=== PATIENT | male | born 1940 | race Caucasian/White ===

== ENCOUNTER 2018-05-06 10:26 | Outpatient (CLI) | payer MEDICARE, OTHER ==
[2018-05-06 11:18] LABS: INR 1.7 (0.8-1.2); PT - PROTHROMBIN TIME 18.6 secs (9.9-12.6)
== END 2018-05-06 10:27 | disposition home or self-care (01) ==
LOC: LAB 10:26
DX: K86.9 Disease of pancreas, unspecified (principal)
CPT/HCPCS: 36415; 85610

== ENCOUNTER 2018-05-12 23:44 | Emergency (ER) | payer MEDICARE, OTHER ==
[2018-05-13] MEDS ORDERED: SODIUM CHLORIDE 0.9% 1,000 ML IV ONE (00:08)
[2018-05-13] MEDS ORDERED: ONDANSETRON 4 MG/2 ML VIAL IVP STA (00:08)
[2018-05-13] MEDS ORDERED: HYDROmorphone 1 MG/ML CARPUJECT IVP STA (00:08)
--- NOTE | 2018-05-13 00:10 | ED Physician Documentation ---
PD HPI ABD PAIN - Stated complaint Stated Complaint: EPIGASTRIC PAIN - Chief complaint Chief Complaint: Cardiac - Additional information Additional information: 77-year-old male with a recent diagnosis of pancreatic cancer who underwent a biliary stent [facility] on May 08, 2018. The patient has been doing well since the procedure.This morning the patient presents with epigastric pain which started while at home and is described as a deep ache which radiates into his back. The patient denies nausea or vomiting. The patient denies lower abdominal pain. No fevers or chills. No relieving factors. No other associated symptoms. Review of Systems Constitutional: denies: Fever, Chills Eyes: denies: Discharge Ears: denies: Ear pain Nose: denies: Congestion Throat: denies: Sore throat Cardiac: denies: Chest pain / pressure Respiratory: denies: Cough GI: reports: Abdominal Pain. denies: Vomiting, Diarrhea : denies: Dysuria Skin: denies: Rash Musculoskeletal: denies: Neck pain Neurologic: denies: Generalized weakness PD PAST MEDICAL HISTORY - Past Medical History Past Medical History: Yes Cardiovascular: Hypertension Respiratory: None Neuro: None Endocrine/Autoimmune: Type 2 diabetes GI: None : Other HEENT: None Psych: None Musculoskeletal: None Derm: None Other Past Medical History: PROSTATE CANCER... - Past Surgical History Past Surgical History: Yes General: Other - Present Medications Home Medications: Ambulatory Orders Medication Instructions Recorded Confirmed Aspirin [Aspirin EC] 81 mg PO DAILY 05/13/18 05/13/18 Cholecalciferol (Vitamin D3) 2,000 mg PO DAILY 05/13/18 05/13/18 [Vitamin D3] Dutasteride/Tamsulosin HCl [Natali 1 mg PO DAILY 05/13/18 05/13/18 0.5-0.4 mg Capsule] Fenofibric Acid (Choline) 135 mg PO DAILY 05/13/18 05/13/18 [Trilipix] Lisinopril 40 mg PO DAILY 05/13/18 05/13/18 Omeprazole Magnesium [Prilosec] 20 mg PO BID 05/13/18 05/13/18 Ondansetron HCl [Zofran] 4 mg PO Q6HR PRN #30 tablet 05/13/18 SITagliptin [Januvia] 100 mg PO DAILY 05/13/18 05/13/18 Simvastatin [Zocor] 60 mg PO DAILY 05/13/18 05/13/18 amLODIPine [Norvasc] 5 mg PO BID 05/13/18 05/13/18 hydroCHLOROthiazide 25 mg PO DAILY 05/13/18 05/13/18 [Hydrochlorothiazide] metFORMIN [Glucophage] 1,000 mg PO BID 05/13/18 05/13/18 oxyCODONE [Roxicodone] 5 mg PO Q6H PRN #20 tablet 05/13/18 - Allergies Allergies/Adverse Reactions: Allergies Allergy/AdvReac Type Severity Reaction Status Date / Time Penicillins AdvReac Edema Verified 05/12/18 23:54 Sulfa (Sulfonamide AdvReac Rash Verified 05/12/18 23:55 Antibiotics) - Social History Does the pt smoke?: No Smoking Status: Never smoker Does the pt drink ETOH?: Yes Does the pt have substance abuse?: No - Immunizations Immunizations are current?: Yes - POLST Patient has POLST: No PD ED PE NORMAL - General General: Alert and oriented X 3 - HEENT HEENT: Atraumatic, PERRL, EOMI, Moist mucous membranes, Other (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 No: Non tender (The patient has tenderness to palpation of the epigastrium, no rebound or peritoneal signs) - Derm Derm: Warm and dry, Other (Jaundice) - Extremities Extremities: No deformity, Normal ROM s pain - Neuro Neuro: Alert and oriented X 3, Normal speech Results - Vitals Vitals: Vital Signs - 24 hr 05/12/18 05/13/18 05/13/18 23:52 00:00 00:10 Temperature 36.5 C Heart Rate 80 76 76 Respiratory 17 15 15 Rate Blood Pressure 159/65 H 156/79 H 138/78 H Blood Pressure [Left] Blood Pressure [Right] O2 Saturation 99 99 98 05/13/18 05/13/18 05/13/18 00:18 00:24 00:58 Temperature Heart Rate 69 71 Respiratory 11 L 18 Rate Blood Pressure 129/80 145/77 H Blood Pressure 137/78 H [Left] Blood Pressure 129/80 [Right] O2 Saturation 97 96 05/13/18 05/13/18 05/13/18 02:17 03:26 04:11 Temperature 36.3 C L Heart Rate 69 69 69 Respiratory 13 13 13 Rate Blood Pressure 145/75 H 152/77 H 147/70 H Blood Pressure [Left] Blood Pressure [Right] O2 Saturation 96 96 96 Oxygen O2 Source Room air - EKG (time done) 23:53 Rate: Rate (enter#) Rhythm: NSR Intervals: Normal MA, Wide QRS Ischemia: Non specific changes Other comments: Other comments (Sinus rhythm with nonspecific intraventricular conduction delay, no acute ischemic changes) - Labs Labs: Laboratory Tests 05/12/18 05/12/18 05/12/18 23:50 23:50 23:50 WBC 7.5 RBC 3.55 L Hgb 10.3 L Hct 31.7 L MCV 89.2 MCH 29.1 MCHC 32.6 RDW 19.2 H Plt Count 459 H MPV 9.1 Neut # (Auto) 3.4 Lymph # (Auto) 3.3 [place] # (Auto) 0.4 Eos # (Auto) 0.2 Baso # (Auto) 0.2 H Absolute Nucleated RBC 0.00 Nucleated RBC % 0.1 Manual Slide Review Indicated Platelet Estimate NORMAL (130-450,000) RBC Morph Micro Appear 1+ ANISOCYTOSIS Sodium 136 Potassium 3.2 L Chloride 98 L Carbon Dioxide 27 Anion Gap 11.0 BUN 17 Creatinine 0.8 Estimated GFR (MDRD) 94 Glucose 185 H Calcium 9.2 Total Bilirubin 5.1 H AST 65 H ALT 98 H Alkaline Phosphatase 377 H Troponin I < 0.04 Total Protein 7.2 Albumin 3.0 L Globulin 4.2 Albumin/Globulin Ratio 0.7 L Lipase 44 Urine Color Urine Clarity Urine pH Ur Specific [place] Urine Protein Urine Glucose (UA) Urine Ketones Urine Occult Blood Urine Nitrite Urine Bilirubin Urine Urobilinogen Ur Leukocyte Esterase Ur Microscopic Review Urine Culture Comments 05/13/18 01:25 WBC RBC Hgb Hct MCV MCH MCHC RDW Plt Count MPV Neut # (Auto) Lymph # (Auto) [place] # (Auto) Eos # (Auto) Baso # (Auto) Absolute Nucleated RBC Nucleated RBC % Manual Slide Review Platelet Estimate RBC Morph Micro Appear Sodium Potassium Chloride Carbon Dioxide Anion Gap BUN Creatinine Estimated GFR (MDRD) Glucose Calcium Total Bilirubin AST ALT Alkaline Phosphatase Troponin I Total Protein Albumin Globulin Albumin/Globulin Ratio Lipase Urine Color BROWN Urine Clarity CLEAR Urine pH 6.0 Ur Specific [place] 1.015 Urine Protein TRACE Urine Glucose (UA) 250 H Urine Ketones NEGATIVE Urine Occult Blood NEGATIVE Urine Nitrite NEGATIVE Urine Bilirubin SMALL H Urine Urobilinogen 0.2 (NORMAL) Ur Leukocyte Esterase NEGATIVE Ur Microscopic Review NOT INDICATED Urine Culture Comments NOT INDICATED - Rads (name of study) CT abd/pelvis Radiology: Final report received, See rad report (IMPRESSION: 4 cm mass in the head of the pancreas, with periportal adenopathy. Common bile duct and pancreatic duct stents in place. No evidence of pancreatitis or other evident etiology for patient's pain. ) PD MEDICAL DECISION MAKING - ED course ED course: The patient's case discussed with the on-call pigment supplier from [facility], I discussed with him the patient's recent procedure, today's presentation, today's lab work and CT findings. The lab work today when compared to the most recent lab work is actually improving. The patient's bilirubin In early April was 12 and today's level of 5 is much improved, the liver function tests are also coming down from where they were at. Since, the CT scan shows the stent in place and no other secondary complications and now the patient's pain is under control he does not recommend urgent transfer to their facility. The patient appears stable for discharge and follow-up as an outpatient. The patient is actually scheduled to see his primary pigment supplier today in clinic. On final evaluation of the patient he is resting comfortably and appears to be in no acute distress. The patient appears appropriate for discharge. I discussed the findings and plan with the patient who understands and agrees. I discussed warning signs and recommended returning to the emergency department for any worsening or any concerns Departure - Departure Disposition: 01 Home, Self Care Clinical Impression: Pancreatic mass, Elevated liver enzymes, Jaundice Abdominal pain Qualifiers: Abdominal location: epigastric Qualified Code(s): R10.13 - Epigastric pain Condition: Good Instructions: ED Abdominal Pain Unkn Cause Male Follow-Up: Mark Villagran MD [Primary Care Provider] - Within 1 week Prescriptions: Ondansetron HCl [Zofran] 4 mg PO Q6HR PRN #30 tablet PRN Reason: Nausea / Vomiting oxyCODONE [Roxicodone] 5 mg PO Q6H PRN #20 tablet PRN Reason: Pain Comments: Please follow-up with your pigment supplier as scheduled for ongoing evaluation of your acute issue Please return to the emergency department for worsening symptoms or any concerns
[2018-05-13 00:17] LABS: ALBUMIN/GLOBULIN RATIO 0.7 (1.0-2.2); BILIRUBIN,TOTAL 5.1 mg/dL (0.2-1.0); CALCIUM 9.2 mg/dL (8.5-10.3); CREATININE 0.8 mg/dL (0.6-1.2); TOTAL PROTEIN 7.2 g/dL (6.7-8.2)
[2018-05-13] MEDS ORDERED: IOVERSOL 320 100 ML VIAL IVP ONE ×2 (00:27→01:57)
[2018-05-13 00:28] LABS: BASOPHILS # (AUTO) 0.2 10^3/uL (0.0-0.1); BASOPHILS % (AUTO) 2.1 %; EOSINOPHILS # (AUTO) 0.2 10^3/uL (0.0-0.7); EOSINOPHILS % (AUTO) 2.2 %; HGB - HEMOGLOBIN 10.3 g/dL (14.0-18.0); LYMPHOCYTES # (AUTO) 3.3 10^3/uL (1.5-3.5); LYMPHOCYTES % (AUTO) 44.4 %; MEAN CORPUSCULAR HEMOGLOBIN 29.1 pg (27.0-31.0); MEAN CORPUSCULAR HGB CONC 32.6 g/dL (32.0-36.0); MEAN CORPUSCULAR VOLUME 89.2 fL (80.0-94.0); MEAN PLATELET VOLUME 9.1 fL (7.4-11.4); MONOCYTES # (AUTO) 0.4 10^3/uL (0.0-1.0); MONOCYTES % (AUTO) 5.7 %; NEUTROPHILS # (AUTO) 3.4 10^3/uL (1.5-6.6); NEUTROPHILS % (AUTO) 45.6 %; PLT - PLATELET COUNT 459 10^3/uL (130-450); RED BLOOD COUNT 3.55 10^6/uL (4.70-6.10); RED CELL DISTRIBUTION WIDTH 19.2 % (12.0-15.0); WHITE BLOOD COUNT 7.5 x10^3/uL (4.8-10.8)
[2018-05-13] MEDS ORDERED: IOVERSOL 320 50 ML VIAL ONE (00:28)
[2018-05-13 00:31] LABS: PLATELET ESTIMATE, MANUAL NORMAL (130-450,000) (NORMAL); RBC MORPHOLOGY (MULTIPLE) 1+ ANISOCYTOSIS (NORMAL)
[2018-05-13 01:44] LABS: GLUCOSE, URINE (UA) 250 mg/dL (NEGATIVE); KETONES,URINE (UA) NEGATIVE (NEGATIVE); LEUKOCYTE ESTERASE, URINE NEGATIVE (NEGATIVE); NITRITE,URINE NEGATIVE (NEGATIVE); OCCULT BLOOD,URINE NEGATIVE (NEGATIVE); PROTEIN,URINE TRACE mg/dL (NEGATIVE); UROBILINOGEN,URINE 0.2 (NORMAL) E.U./dL (NORMAL)
[2018-05-13 01:52] LABS: BILIRUBIN,URINE SMALL (NEGATIVE); CLARITY,URINE CLEAR (CLEAR); ICTOTEST,URINE POSITIVE
[2018-05-13] MEDS ORDERED: IOVERSOL 320 50 ML VIAL PO ONE (01:57)
--- NOTE | 2018-05-13 02:33 | CT Report ---
Reason: Epigastric pain, status post ERCP with stent Procedure Date: 05/13/2018 Accession Number: [id number] / [id number] Procedure: CT - Abdomen/Pelvis W CPT Code: FULL RESULT: EXAM: CT ABDOMEN AND PELVIS EXAM DATE: 05/13/2018 02:02 AM. CLINICAL HISTORY: Epigastric pain, status post ERCP with stent. COMPARISONS: None. TECHNIQUE: Routine helical CT imaging was performed through the abdomen and pelvis. IV contrast: 80ML OPTIRAY 320. Enteric contrast: Yes. Reconstructions: Coronal and sagittal. In accordance with CT protocol optimization, one or more of the following dose reduction techniques were utilized for this exam: automated exposure control, adjustment of mA and/or KV based on patient size, or use of iterative reconstructive technique. FINDINGS: Lung Bases: Unremarkable. Liver: Pneumobilia. No focal lesion. Gallbladder/Bile Ducts: Common bile duct stent in place. The gallbladder is not dilated. Periportal adenopathy, with the dominant node anterior to the hepatic artery measuring 3.5 x 2.1 cm. Spleen: Normal. Pancreas: Ill-defined mass in the head of the pancreas, measuring approximately 4 x 4 x 2.5 cm. Pancreatic duct stent in place. No pancreatic ductal dilatation. Adrenal Glands: Normal. Kidneys: Normal. No masses or hydronephrosis. Peritoneal Cavity/Bowel: No bowel dilatation, free thus, or free fluid. Periportal adenopathy. No mesenteric adenopathy. The appendix is not confidently identified, but no pericecal fluid collection or inflammation is seen to suggest acute appendicitis. Pelvic Organs: Normal. The bladder and visualized pelvic organs are within normal limits. Vasculature: No aneurysms or other significant abnormality. Bones: Degenerative changes. Other: None. IMPRESSION: 4 cm mass in the head of the pancreas, with periportal adenopathy. Common bile duct and pancreatic duct stents in place. No evidence of pancreatitis or other evident etiology for patient's pain. RADIA
[2018-05-13] MEDS ORDERED: oxyCODONE 5 MG TABLET PO STA (04:21)
[2018-05-13 04:32] VITALS: BP 149/69
== END 2018-05-13 04:32 | disposition home or self-care (01) ==
LOC: ED 23:44
DX: C25.0 Malignant neoplasm of head of pancreas (principal); R74.8 Abnormal levels of other serum enzymes; R17 Unspecified jaundice; I45.89 Other specified conduction disorders; I10 Essential (primary) hypertension; E11.9 Type 2 diabetes mellitus without complications; Z79.84 Long term (current) use of oral hypoglycemic drugs; Z79.82 Long term (current) use of aspirin
CPT/HCPCS: 36415; 74177; 80053; 81003; 83690; 84484; 85025; 93005; 96361; 96374; 96375; 99284; 99285; A9270; J1170; Q9967; 81001; 87086

== ENCOUNTER 2018-06-10 09:04 | Outpatient (CLI) | payer MEDICARE, OTHER ==
[2018-06-10 09:33] LABS: BASOPHILS # (AUTO) 0.1 10^3/uL (0.0-0.1); BASOPHILS % (AUTO) 0.9 %; EOSINOPHILS # (AUTO) 0.1 10^3/uL (0.0-0.7); EOSINOPHILS % (AUTO) 1.3 %; HGB - HEMOGLOBIN 12.2 g/dL (14.0-18.0); LYMPHOCYTES # (AUTO) 0.9 10^3/uL (1.5-3.5); LYMPHOCYTES % (AUTO) 12.7 %; MEAN CORPUSCULAR HEMOGLOBIN 29.4 pg (27.0-31.0); MEAN CORPUSCULAR HGB CONC 33.4 g/dL (32.0-36.0); MEAN CORPUSCULAR VOLUME 87.9 fL (80.0-94.0); MEAN PLATELET VOLUME 7.6 fL (7.4-11.4); MONOCYTES # (AUTO) 0.4 10^3/uL (0.0-1.0); MONOCYTES % (AUTO) 6.2 %; NEUTROPHILS # (AUTO) 5.5 10^3/uL (1.5-6.6); NEUTROPHILS % (AUTO) 78.9 %; PLT - PLATELET COUNT 255 10^3/uL (130-450); RED BLOOD COUNT 4.16 10^6/uL (4.70-6.10); RED CELL DISTRIBUTION WIDTH 14.5 % (12.0-15.0); WHITE BLOOD COUNT 6.9 x10^3/uL (4.8-10.8)
[2018-06-10 09:39] LABS: INR 1.1 (0.8-1.2); PT - PROTHROMBIN TIME 12.3 secs (9.9-12.6)
[2018-06-10 09:50] LABS: PARTIAL THROMBOPLASTIN TIME 30.7 secs (24.9-33.3)
[2018-06-10 09:58] LABS: ALBUMIN 3.6 g/dL (3.2-5.5); BILIRUBIN,TOTAL 1.4 mg/dL (0.2-1.0); CALCIUM 9.2 mg/dL (8.5-10.3); CREATININE 0.8 mg/dL (0.6-1.2); TOTAL PROTEIN 7.1 g/dL (6.7-8.2)
== END 2018-06-10 09:05 | disposition home or self-care (01) ==
LOC: LAB 09:04
PROVIDERS: ATTEND Internal Medicine Hematology & Oncology
DX: C25.9 Malignant neoplasm of pancreas, unspecified (principal)
CPT/HCPCS: 36415; 80053; 85025; 85610; 85730

== ENCOUNTER 2018-06-16 08:02 | Outpatient (CLI) | payer MEDICARE, OTHER ==
[2018-06-16 08:31] LABS: ALBUMIN 3.6 g/dL (3.2-5.5); BILIRUBIN,TOTAL 0.9 mg/dL (0.2-1.0); CALCIUM 8.8 mg/dL (8.5-10.3); CREATININE 0.7 mg/dL (0.6-1.2); TOTAL PROTEIN 7.1 g/dL (6.7-8.2)
[2018-06-16 09:12] LABS: BASOPHILS # (AUTO) 0.2 10^3/uL (0.0-0.1); BASOPHILS % (AUTO) 1.8 %; EOSINOPHILS # (AUTO) 0.2 10^3/uL (0.0-0.7); EOSINOPHILS % (AUTO) 2.3 %; HGB - HEMOGLOBIN 11.9 g/dL (14.0-18.0); LYMPHOCYTES # (AUTO) 0.8 10^3/uL (1.5-3.5); LYMPHOCYTES % (AUTO) 8.8 %; MEAN CORPUSCULAR HGB CONC 34.1 g/dL (32.0-36.0); MEAN PLATELET VOLUME 8.4 fL (7.4-11.4); MONOCYTES # (AUTO) 0.5 10^3/uL (0.0-1.0); MONOCYTES % (AUTO) 5.5 %; NEUTROPHILS # (AUTO) 7.4 10^3/uL (1.5-6.6); NEUTROPHILS % (AUTO) 81.6 %; PLT - PLATELET COUNT 296 10^3/uL (130-450); RED BLOOD COUNT 3.97 10^6/uL (4.70-6.10); RED CELL DISTRIBUTION WIDTH 14.2 % (12.0-15.0); WHITE BLOOD COUNT 9.1 x10^3/uL (4.8-10.8)
[2018-06-16 09:16] LABS: INR 1.1 (0.8-1.2)
== END 2018-06-16 08:03 | disposition home or self-care (01) ==
LOC: LAB 08:02
PROVIDERS: ATTEND Internal Medicine Hematology & Oncology
DX: C25.9 Malignant neoplasm of pancreas, unspecified (principal)
CPT/HCPCS: 36415; 80053; 85025; 85610

== ENCOUNTER 2018-07-06 08:51 | Emergency (ER) | payer MEDICARE, OTHER ==
--- NOTE | 2018-07-06 11:53 | ED Physician Documentation ---
History of Present Illness - Stated complaint Stated Complaint: BILATERAL FOOT SWELLING - Chief complaint Chief Complaint: Cardiac - History obtained from History obtained from: Patient, Family - History of Present Illness Timing: How many days ago (5) - Additonal information Additional information: 77-year-old male undergoing treatment for pancreatic cancer at [facility] has developed lower extremity swelling over the past 5 days. He denies any calf pain he does have some pain in his feet associated with the swelling. He has been sleeping in a recliner with his feet in a dependent position. He has gone into see his oncologist 5 days ago and at that time got some steroid. Review of Systems Constitutional: denies: Fever Eyes: denies: Decreased vision Ears: denies: Ear pain Nose: denies: Rhinorrhea / runny nose, Congestion Throat: denies: Sore throat Cardiac: denies: Chest pain / pressure, Palpitations Respiratory: denies: Dyspnea, Cough Musculoskeletal: reports: Extremity pain, Extremity swelling Neurologic: denies: Generalized weakness, Focal weakness, Numbness PD PAST MEDICAL HISTORY - Past Medical History Cardiovascular: Hypertension Respiratory: None Neuro: None Endocrine/Autoimmune: Type 2 diabetes GI: None : Other HEENT: None Psych: None Musculoskeletal: None Derm: None - Past Surgical History Past Surgical History: Yes General: Other - Present Medications Home Medications: Ambulatory Orders Medication Instructions Recorded Confirmed Aspirin [Aspirin EC] 81 mg PO DAILY 05/13/18 05/13/18 Cholecalciferol (Vitamin D3) 2,000 mg PO DAILY 05/13/18 05/13/18 [Vitamin D3] Dutasteride/Tamsulosin HCl [Natali 1 mg PO DAILY 05/13/18 05/13/18 0.5-0.4 mg Capsule] Fenofibric Acid (Choline) 135 mg PO DAILY 05/13/18 05/13/18 [Trilipix] Lisinopril 40 mg PO DAILY 05/13/18 05/13/18 Omeprazole Magnesium [Prilosec] 20 mg PO BID 05/13/18 05/13/18 Ondansetron HCl [Zofran] 4 mg PO Q6HR PRN #30 tablet 05/13/18 SITagliptin [Januvia] 100 mg PO DAILY 05/13/18 05/13/18 Simvastatin [Zocor] 60 mg PO DAILY 05/13/18 05/13/18 amLODIPine [Norvasc] 5 mg PO BID 05/13/18 05/13/18 hydroCHLOROthiazide 25 mg PO DAILY 05/13/18 05/13/18 [Hydrochlorothiazide] metFORMIN [Glucophage] 1,000 mg PO BID 05/13/18 05/13/18 oxyCODONE [Roxicodone] 5 mg PO Q6H PRN #20 tablet 05/13/18 - Allergies Allergies/Adverse Reactions: Allergies Allergy/AdvReac Type Severity Reaction Status Date / Time Penicillins AdvReac Edema Verified 05/12/18 23:54 Sulfa (Sulfonamide AdvReac Rash Verified 05/12/18 23:55 Antibiotics) - Social History Does the pt smoke?: No Smoking Status: Never smoker Does the pt drink ETOH?: Yes Does the pt have substance abuse?: No - Immunizations Immunizations are current?: Yes - POLST Patient has POLST: No PD ED PE NORMAL - Vitals Vital signs reviewed: Yes (normal ) - General General: Alert and oriented X 3, No acute distress, Well developed/nourished - HEENT HEENT: Atraumatic, PERRL, EOMI - Respiratory Respiratory: No respiratory distress - Derm Derm: Normal color, Warm and dry, No rash - Extremities Extremities: No deformity, Other (There is bilateral lower ext swelling with pitting edema ) - Neuro Neuro: Alert and oriented X 3, oysterman 2-12 intact, No motor deficit, No sensory deficit, Normal speech Eye Opening: Spontaneous Motor: Obeys Commands Verbal: Oriented GCS Score: 15 - Psych Psych: Normal mood, Normal affect Results - Vitals Vitals: Vital Signs - 24 hr 07/06/18 07/06/18 07/06/18 09:11 13:24 13:44 Temperature 36.7 C 36.2 C L Heart Rate 87 88 74 Respiratory 18 16 18 Rate Blood Pressure 124/77 115/57 L 126/78 O2 Saturation 100 95 100 Oxygen O2 Source Room air - Rads (name of study) duplex veins Radiology: Prelim report reviewed (Impression: No evidence for deep venous thrombosis.), EMP read indepedently, See rad report PD MEDICAL DECISION MAKING - ED course Complexity details: reviewed results, re-evaluated patient, considered differential, d/w patient, d/w family ED course: 77-year-old male undergoing treatment for pancreatic cancer has developed lower extremity swelling. He has this bilaterally and fairly symmetrically it is worse on the right than the left. He does not have calf tenderness he does sleep in his easy chair with his legs dangling. I suspect all of this is dependent edema and he has no signs or symptoms of congestive heart failure otherwise. He does have cancer and it was important to rule out deep venous thrombosis. Duplex exam of the right leg is without evidence of DVT. He is allergic to sulfa and we will not prescribe furosemide. He does have hydrochlorothiazide and I have asked him to double up on this medication and to refrain from sleeping in his easy chair. Departure - Departure Disposition: Home, Self Care Clinical Impression: Dependent edema Condition: Stable Instructions: ED Edema Legs Bilateral Follow-Up: Mark Villagran MD [Primary Care Provider] - Comments: Today it appears you have collected fluid in your legs from "dependent" edema from hanging your legs down while you are asleep. Sleep with your legs elevated and double up on your dose of HCTZ. The expectation is that your swelling improves over the next 2 days and as long as you are not continuing to sleep with your legs down this should not come back. Discharge Date/Time: 07/06/18 13:44
--- NOTE | 2018-07-06 13:27 | Ultrasound Report ---
Reason: RLE swelling Procedure Date: 07/06/2018 Accession Number: [id number] / [id number] Procedure: US - Duplex Ext Veins Right CPT Code: FULL RESULT: EXAM: RIGHT LOWER EXTREMITY VENOUS ULTRASOUND EXAM DATE: 07/06/2018 12:24 PM. CLINICAL HISTORY: RLE swelling. COMPARISON: None. TECHNIQUE: Real-time sonographic vascular imaging was performed by the accounts receivable assistant through the lower extremity utilizing both color-flow and Doppler spectral analysis. Multiple data entry representative static images were saved for review. FINDINGS: Common Femoral Vein (CFV): Normal. CFV-GSV Junction: Normal. Profunda Femoral Vein (PFV): Normal. Femoral Vein (FV) Prox: Normal. Femoral Vein (FV) Mid: Normal. Femoral Vein (FV) Dist: Normal. Popliteal Vein: Normal. Posterior Tibial Veins: Normal. Peroneal Veins: Limited visualization. Contralateral Side CFV: Normal. Other: None. IMPRESSION: No evidence for deep venous thrombosis. RADIA
[2018-07-06 15:41] VITALS: BP 126/78
== END 2018-07-06 13:44 | disposition home or self-care (01) ==
LOC: ED 08:51
DX: R60.0 Localized edema (principal); C25.9 Malignant neoplasm of pancreas, unspecified; Z88.2 Allergy status to sulfonamides; I10 Essential (primary) hypertension; E11.9 Type 2 diabetes mellitus without complications; Z79.84 Long term (current) use of oral hypoglycemic drugs; Z79.82 Long term (current) use of aspirin
CPT/HCPCS: 99283

== ENCOUNTER 2018-07-28 16:46 | Emergency (ER) | payer MEDICARE, OTHER ==
[2018-07-28] MEDS ORDERED: SODIUM CHLORIDE 0.9% 1,000 ML IV ONE (17:22)
[2018-07-28] MEDS ORDERED: LACTATED RINGERS 1,000 ML IV STA (17:22)
[2018-07-28] MEDS ORDERED: DIPHENOX/ATROPINE 2.5/0.025 MG TABLET PO STA (17:22)
[2018-07-28] MEDS ORDERED: LIDOCAINE/PRILOCAINE 2.5% CREAM 5 GM TUBE TOP STA (17:23)
--- NOTE | 2018-07-28 17:24 | ED Physician Documentation ---
History of Present Illness - Stated complaint Stated Complaint: DIARRHEA/WEAKNESS - Chief complaint Chief Complaint: General - History obtained from History obtained from: Patient, Family - History of Present Illness Timing: Other (77-year-old gentleman with stage IIb pancreatic cancer undergoing chemotherapy, last infusion about a week and a half ago. He had 4 days of watery diarrhea associated with nausea but no abdominal pain. His oncologist thinks this is due to the chemotherapy. He denies recent travel, fevers, or sick contacts. He is starting to feel weak and dizzy with the diarrhea like he is dehydrated.) Review of Systems Ten Systems: 10 systems reviewed and negative Constitutional: reports: Fatigue. denies: Fever, Chills Throat: denies: Dental pain / toothache, Sore throat Cardiac: denies: Chest pain / pressure, Palpitations Respiratory: denies: Dyspnea PD PAST MEDICAL HISTORY - Past Medical History Cardiovascular: Hypertension Respiratory: None Neuro: None Endocrine/Autoimmune: Type 2 diabetes GI: None : Other HEENT: None Psych: None Musculoskeletal: None Derm: None - Past Surgical History Past Surgical History: Yes General: Other - Present Medications Home Medications: Ambulatory Orders Medication Instructions Recorded Confirmed Aspirin [Aspirin EC] 81 mg PO DAILY 05/13/18 05/13/18 Cholecalciferol (Vitamin D3) 2,000 mg PO DAILY 05/13/18 05/13/18 [Vitamin D3] Dutasteride/Tamsulosin HCl [Natali 1 mg PO DAILY 05/13/18 05/13/18 0.5-0.4 mg Capsule] Fenofibric Acid (Choline) 135 mg PO DAILY 05/13/18 05/13/18 [Trilipix] Lisinopril 40 mg PO DAILY 05/13/18 05/13/18 Omeprazole Magnesium [Prilosec] 20 mg PO BID 05/13/18 05/13/18 Ondansetron HCl [Zofran] 4 mg PO Q6HR PRN #30 tablet 05/13/18 SITagliptin [Januvia] 100 mg PO DAILY 05/13/18 05/13/18 Simvastatin [Zocor] 60 mg PO DAILY 05/13/18 05/13/18 amLODIPine [Norvasc] 5 mg PO BID 05/13/18 05/13/18 hydroCHLOROthiazide 25 mg PO DAILY 05/13/18 05/13/18 [Hydrochlorothiazide] metFORMIN [Glucophage] 1,000 mg PO BID 05/13/18 05/13/18 oxyCODONE [Roxicodone] 5 mg PO Q6H PRN #20 tablet 05/13/18 oxyCODONE [Roxicodone] 5 mg PO Q4-6H PRN #20 tablet 07/28/18 - Allergies Allergies/Adverse Reactions: Allergies Allergy/AdvReac Type Severity Reaction Status Date / Time Penicillins AdvReac Edema Verified 07/28/18 17:05 Sulfa (Sulfonamide AdvReac Rash Verified 07/28/18 17:05 Antibiotics) - Social History Does the pt smoke?: No Smoking Status: Never smoker Does the pt drink ETOH?: Yes Does the pt have substance abuse?: No - Family History Family history: reports: Non contributory - Immunizations Immunizations are current?: Yes - POLST Patient has POLST: No PD ED PE NORMAL - Vitals Vital signs reviewed: Yes (Borderline hypotension and tachycardia) - General General: Alert and oriented X 3, No acute distress - HEENT HEENT: PERRL, EOMI - Neck Neck: Supple, no meningeal sign, No bony TTP - Cardiac Cardiac: RRR, No murmur - Respiratory Respiratory: No respiratory distress, Clear bilaterally - Abdomen Abdomen: Other (Hyperactive bowel tones, no tenderness.) - Back Back: No CVA TTP, No spinal TTP - Derm Derm: Normal color, Warm and dry - Extremities Extremities: No edema, No calf tenderness / cord - Neuro Neuro: Alert and oriented X 3, Normal speech Results - Vitals Vitals: Vital Signs - 24 hr 07/28/18 07/28/18 07/28/18 16:59 18:37 19:16 Temperature 37.2 C 36.9 C 36.7 C Heart Rate 104 H 112 H 86 Respiratory 20 16 16 Rate Blood Pressure 97/52 L 141/64 H 125/56 L O2 Saturation 93 94 93 Oxygen O2 Source Room air - Labs Labs: Laboratory Tests 07/28/18 07/28/18 07/28/18 17:15 17:15 17:37 WBC 3.2 L RBC 4.04 L Hgb 11.7 L Hct 34.3 L MCV 84.9 MCH 28.9 MCHC 34.0 RDW 14.7 Plt Count 282 MPV 7.3 L Neut # (Auto) 1.4 L Lymph # (Auto) 0.9 L [place] # (Auto) 0.9 Eos # (Auto) 0.1 Baso # (Auto) 0.0 Absolute Nucleated RBC 0.00 Nucleated RBC % 0.1 Sodium 128 L Potassium 2.9 L Chloride 93 L Carbon Dioxide 22 Anion Gap 13.0 BUN 12 Creatinine 1.2 Estimated GFR (MDRD) 59 L Glucose 156 H Lactic Acid 0.8 Calcium 8.1 L Total Bilirubin 0.8 AST 26 ALT 37 Alkaline Phosphatase 211 H Total Protein 5.8 L Albumin 2.7 L Globulin 3.1 Albumin/Globulin Ratio 0.9 L Lipase 18 L Urine Color Urine Clarity Urine pH Ur Specific [place] Urine Protein Urine Glucose (UA) Urine Ketones Urine Occult Blood Urine Nitrite Urine Bilirubin Urine Urobilinogen Ur Leukocyte Esterase Urine RBC Urine WBC Ur Squamous Epith Cells Urine Bacteria Urine Casts Ur Microscopic Review Urine Culture Comments 07/28/18 18:29 WBC RBC Hgb Hct MCV MCH MCHC RDW Plt Count MPV Neut # (Auto) Lymph # (Auto) [place] # (Auto) Eos # (Auto) Baso # (Auto) Absolute Nucleated RBC Nucleated RBC % Sodium Potassium Chloride Carbon Dioxide Anion Gap BUN Creatinine Estimated GFR (MDRD) Glucose Lactic Acid Calcium Total Bilirubin AST ALT Alkaline Phosphatase Total Protein Albumin Globulin Albumin/Globulin Ratio Lipase Urine Color YELLOW Urine Clarity CLEAR Urine pH 6.0 Ur Specific [place] 1.020 Urine Protein 30 H Urine Glucose (UA) NEGATIVE Urine Ketones TRACE Urine Occult Blood TRACE-LYSE Urine Nitrite NEGATIVE Urine Bilirubin NEGATIVE Urine Urobilinogen 0.2 (NORMAL) Ur Leukocyte Esterase NEGATIVE Urine RBC 0-5 Urine WBC 0-3 Ur Squamous Epith Cells NONE SEEN Urine Bacteria None Seen Urine Casts 3-5 Hyaline Casts Ur Microscopic Review INDICATED Urine Culture Comments NOT INDICATED PD MEDICAL DECISION MAKING - ED course ED course: 77-year-old gentleman undergoing chemotherapy presents with diarrhea, presumed related to his chemotherapy primarily. He feels dehydrated. His port was accessed and he was administered 2 L of IV fluids and some oral potassium for his low potassium he felt much better and tolerated p.o. here. He requested a refill of his oxycodone that he is using occasionally for pain and given the circumstances it is not unreasonable. Departure - Departure Disposition: 01 Home, Self Care Clinical Impression: Pancreatic mass, Dehydration Diarrhea Qualifiers: Diarrhea type: unspecified type Qualified Code(s): R19.7 - Diarrhea, unspecified Condition: Good Record reviewed to determine appropriate education?: Yes Instructions: ED Dehydration Prescriptions: oxyCODONE [Roxicodone] 5 mg PO Q4-6H PRN #20 tablet PRN Reason: Pain Comments: Call your doctor to arrange a follow-up appointment, make the next available appointment. In the interim, return anytime if worse or if new symptoms develop.
[2018-07-28 17:27] LABS: BASOPHILS % (AUTO) 0.9 %; EOSINOPHILS # (AUTO) 0.1 10^3/uL (0.0-0.7); EOSINOPHILS % (AUTO) 1.6 %; HGB - HEMOGLOBIN 11.7 g/dL (14.0-18.0); LYMPHOCYTES # (AUTO) 0.9 10^3/uL (1.5-3.5); LYMPHOCYTES % (AUTO) 27.2 %; MEAN CORPUSCULAR HEMOGLOBIN 28.9 pg (27.0-31.0); MEAN CORPUSCULAR VOLUME 84.9 fL (80.0-94.0); MEAN PLATELET VOLUME 7.3 fL (7.4-11.4); MONOCYTES # (AUTO) 0.9 10^3/uL (0.0-1.0); MONOCYTES % (AUTO) 26.8 %; NEUTROPHILS # (AUTO) 1.4 10^3/uL (1.5-6.6); NEUTROPHILS % (AUTO) 43.5 %; PLT - PLATELET COUNT 282 10^3/uL (130-450); RED BLOOD COUNT 4.04 10^6/uL (4.70-6.10); RED CELL DISTRIBUTION WIDTH 14.7 % (12.0-15.0); WHITE BLOOD COUNT 3.2 x10^3/uL (4.8-10.8)
[2018-07-28 17:35] LABS: ALBUMIN 2.7 g/dL (3.2-5.5); ALBUMIN/GLOBULIN RATIO 0.9 (1.0-2.2); BILIRUBIN,TOTAL 0.8 mg/dL (0.2-1.0); CALCIUM 8.1 mg/dL (8.5-10.3); CREATININE 1.2 mg/dL (0.6-1.2); TOTAL PROTEIN 5.8 g/dL (6.7-8.2)
[2018-07-28] MEDS ORDERED: POTASSIUM CHLORIDE 20 MEQ TABLET PO STA (18:31)
[2018-07-28 18:39] LABS: GLUCOSE, URINE (UA) NEGATIVE (NEGATIVE); KETONES,URINE (UA) TRACE mg/dL (NEGATIVE); LEUKOCYTE ESTERASE, URINE NEGATIVE (NEGATIVE); NITRITE,URINE NEGATIVE (NEGATIVE); OCCULT BLOOD,URINE TRACE-LYSE (NEGATIVE); PROTEIN,URINE 30 mg/dL (NEGATIVE); UROBILINOGEN,URINE 0.2 (NORMAL) E.U./dL (NORMAL)
[2018-07-28 18:42] LABS: BILIRUBIN,URINE NEGATIVE (NEGATIVE); CLARITY,URINE CLEAR (CLEAR); ICTOTEST,URINE NEGATIVE
[2018-07-28 18:53] LABS: BACTERIA,URINE None Seen /HPF (None Seen); RBC,URINE 0-5 /HPF (0-5); SQUAMOUS EPITHELIAL CELL,UR NONE SEEN (<= Few)
[2018-07-28 20:01] VITALS: BP 130/57
== END 2018-07-28 20:02 | disposition home or self-care (01) ==
LOC: ED 16:46
DX: E86.0 Dehydration (principal); C25.9 Malignant neoplasm of pancreas, unspecified; K86.81 Exocrine pancreatic insufficiency; E87.6 Hypokalemia; E11.9 Type 2 diabetes mellitus without complications; I10 Essential (primary) hypertension; Z79.84 Long term (current) use of oral hypoglycemic drugs; Z79.899 Other long term (current) drug therapy
CPT/HCPCS: 36415; 80053; 81001; 83605; 83690; 85025; 87040; 96360; 96361; 99284; A9270; J3490; J7120; 81003; 87086

== ENCOUNTER 2018-08-01 17:33 | Emergency (ER) | payer MEDICARE, OTHER ==
[2018-08-01] MEDS ORDERED: SODIUM CHLORIDE 0.9% 1,000 ML IV ONE (17:41)
--- NOTE | 2018-08-01 17:44 | ED Physician Documentation ---
PD HPI DYSPNEA - Stated complaint Stated Complaint: SHORT OF BREATH - Chief complaint Chief Complaint: Resp - History obtained from History obtained from: Patient, Family () - History of Present Illness Timing - onset: Today (77-year-old gentleman undergoing immunotherapy for stage IIb pancreatic carcinoma. Followed at the [facility]. I saw him a few days ago for diarrhea which continues but is getting better. He had stool studies done yesterday, at [facility], no results yet. He presents by private vehicle today with chills that started this afternoon associated with mild cough and shortness of breath. He has no heart or lung problems and denies pedal edema or calf pain.) Review of Systems Ten Systems: 10 systems reviewed and negative Constitutional: reports: Chills, Fatigue. denies: Fever Cardiac: denies: Chest pain / pressure, Palpitations Respiratory: reports: Dyspnea, Cough GI: reports: Diarrhea. denies: Abdominal Pain, Nausea, Vomiting PD PAST MEDICAL HISTORY - Past Medical History Cardiovascular: Hypertension Respiratory: None Neuro: None Endocrine/Autoimmune: Type 2 diabetes GI: None : Other HEENT: None Psych: None Musculoskeletal: None Derm: None - Past Surgical History Past Surgical History: Yes General: Other - Present Medications Home Medications: Ambulatory Orders Medication Instructions Recorded Confirmed Aspirin [Aspirin EC] 81 mg PO DAILY 05/13/18 08/01/18 Cholecalciferol (Vitamin D3) 2,000 mg PO DAILY 05/13/18 08/01/18 [Vitamin D3] Dutasteride/Tamsulosin HCl [Natali 1 mg PO DAILY 05/13/18 08/01/18 0.5-0.4 mg Capsule] Fenofibric Acid (Choline) 135 mg PO DAILY 05/13/18 08/01/18 [Trilipix] Lisinopril 40 mg PO DAILY 05/13/18 08/01/18 Omeprazole Magnesium [Prilosec] 20 mg PO BID 05/13/18 08/01/18 Ondansetron HCl [Zofran] 4 mg PO Q6HR PRN #30 tablet 05/13/18 08/01/18 SITagliptin [Januvia] 100 mg PO DAILY 05/13/18 08/01/18 Simvastatin [Zocor] 60 mg PO DAILY 05/13/18 08/01/18 amLODIPine [Norvasc] 5 mg PO BID 05/13/18 08/01/18 hydroCHLOROthiazide 25 mg PO DAILY 05/13/18 08/01/18 [Hydrochlorothiazide] metFORMIN [Glucophage] 1,000 mg PO BID 05/13/18 08/01/18 oxyCODONE [Roxicodone] 5 mg PO Q4-6H PRN #20 tablet 07/28/18 08/01/18 - Allergies Allergies/Adverse Reactions: Allergies Allergy/AdvReac Type Severity Reaction Status Date / Time Penicillins AdvReac Edema Verified 07/28/18 17:05 Sulfa (Sulfonamide AdvReac Rash Verified 07/28/18 17:05 Antibiotics) - Social History Does the pt smoke?: No Smoking Status: Never smoker Does the pt drink ETOH?: Yes Does the pt have substance abuse?: No - Family History Family history: reports: Non contributory - Immunizations Immunizations are current?: Yes - POLST Patient has POLST: No PD ED PE NORMAL - Vitals Vital signs reviewed: Yes (Tachycardic, tachypneic, hypoxic) - General General: Alert and oriented X 3, No acute distress - HEENT HEENT: Other (Dry mucous membranes) - Neck Neck: Supple, no meningeal sign, No bony TTP, No bruit - Cardiac Cardiac: Other (Tachycardic and regular without murmur) - Respiratory Respiratory: No respiratory distress, Other (Potentially slightly decreased left upper lobe) - Abdomen Abdomen: Soft, Non tender - Back Back: No CVA TTP, No spinal TTP - Derm Derm: Normal color, Warm and dry - Extremities Extremities: No edema, No calf tenderness / cord - Neuro Neuro: Alert and oriented X 3, Normal speech Results - Vitals Vitals: Vital Signs - 24 hr 08/01/18 08/01/18 08/01/18 17:37 17:49 18:36 Temperature 36.6 C 38.1 C H Heart Rate 131 H 124 H 116 H Respiratory 28 H 18 20 Rate Blood Pressure 119/55 L 116/58 L 134/60 H O2 Saturation 86 L 92 95 Oxygen O2 Source Nasal cannula Oxygen Flow Rate 6 - EKG (time done) 1752 Rate: Rate (enter#) (120) Rhythm: Sinus tachycardia Amity: Normal Intervals: Normal TX QRS: Normal Ischemia: Non specific changes Computer interpretation: Agree with computer - Labs Labs: Laboratory Tests 08/01/18 08/01/18 08/01/18 17:49 17:49 17:49 WBC 8.4 RBC 4.11 L Hgb 11.6 L Hct 34.9 L MCV 85.0 MCH 28.4 MCHC 33.3 RDW 15.0 Plt Count 489 H MPV 7.8 Neut # (Auto) 7.0 H Lymph # (Auto) 0.7 L Jewell # (Auto) 0.7 Eos # (Auto) 0.0 Baso # (Auto) 0.0 Absolute Nucleated RBC 0.01 Nucleated RBC % 0.1 Sodium 128 L Potassium 2.9 L Chloride 93 L Carbon Dioxide 21 Anion Gap 14.0 H BUN 21 H Creatinine 2.3 H Estimated GFR (MDRD) 28 L Glucose 208 H Lactic Acid Calcium 8.7 Total Bilirubin 0.5 AST 34 ALT 43 Alkaline Phosphatase 114 Troponin I < 0.04 B-Natriuretic Peptide Total Protein 6.6 L Albumin 2.8 L Globulin 3.8 Albumin/Globulin Ratio 0.7 L Lipase 22 08/01/18 08/01/18 17:49 17:49 WBC RBC Hgb Hct MCV MCH MCHC RDW Plt Count MPV Neut # (Auto) Lymph # (Auto) Jewell # (Auto) Eos # (Auto) Baso # (Auto) Absolute Nucleated RBC Nucleated RBC % Sodium Potassium Chloride Carbon Dioxide Anion Gap BUN Creatinine Estimated GFR (MDRD) Glucose Lactic Acid 2.9 H Calcium Total Bilirubin AST ALT Alkaline Phosphatase Troponin I B-Natriuretic Peptide 110 H Total Protein Albumin Globulin Albumin/Globulin Ratio Lipase PD MEDICAL DECISION MAKING - ED course ED course: 77-year-old gent with pancreatic cancer presents with mild cough, dyspnea, hypoxemia, and tachycardia. Chest x-ray is clear, could be occult pneumonia, but also PE is considered given his active cancer. Cannot do CTPA given acute renal failure, note that his creatinine the other day was 1.1. Heparin started d/t high risk for PE and unable to R/O given ARF. Given need for w/u for PE and complication d/t renal failure, accepted to by Dr Malachi Astorga at 1855, cobras completed. Also given IV cefepime after bcx x 2 for poss occult PNA. Departure - Departure Disposition: 02 Transfer Acute Care Hosp Clinical Impression: Pancreatic mass, Hypoxemia ARF (acute renal failure) Qualifiers: Acute renal failure type: unspecified Qualified Code(s): N17.9 - Acute kidney failure, unspecified Condition: Serious
[2018-08-01] MEDS ORDERED: LIDOCAINE/PRILOCAINE 2.5% CREAM 5 GM TUBE TOP STA (17:50)
[2018-08-01 18:06] LABS: BASOPHILS % (AUTO) 0.3 %; EOSINOPHILS % (AUTO) 0.2 %; HGB - HEMOGLOBIN 11.6 g/dL (14.0-18.0); LYMPHOCYTES # (AUTO) 0.7 10^3/uL (1.5-3.5); MEAN CORPUSCULAR HEMOGLOBIN 28.4 pg (27.0-31.0); MEAN CORPUSCULAR HGB CONC 33.3 g/dL (32.0-36.0); MEAN PLATELET VOLUME 7.8 fL (7.4-11.4); MONOCYTES # (AUTO) 0.7 10^3/uL (0.0-1.0); MONOCYTES % (AUTO) 8.8 %; NEUTROPHILS % (AUTO) 82.7 %; PLT - PLATELET COUNT 489 10^3/uL (130-450); RED BLOOD COUNT 4.11 10^6/uL (4.70-6.10); WHITE BLOOD COUNT 8.4 x10^3/uL (4.8-10.8)
--- NOTE | 2018-08-01 18:09 | XRAY Report ---
Reason: dyspnea cough Procedure Date: 08/01/2018 Accession Number: [id number] / [id number] Procedure: XR - Chest 1 View X-Ray CPT Code: 21813 FULL RESULT: EXAM: CHEST RADIOGRAPHY EXAM DATE: 08/01/2018 05:48 PM. CLINICAL HISTORY: Dyspnea, cough. COMPARISON: XR CHEST PA AND LAT 02/15/2010 3:17 PM. TECHNIQUE: 1 view. FINDINGS: Lungs/Pleura: No focal opacities evident. No pleural effusion. No pneumothorax. Mediastinum: Within exam limitations, the cardiomediastinal contour is normal. Other: Right chest port noted. IMPRESSION: No acute cardiopulmonary abnormality. RADIA
[2018-08-01 18:10] LABS: ALBUMIN 2.8 g/dL (3.2-5.5); ALBUMIN/GLOBULIN RATIO 0.7 (1.0-2.2); BILIRUBIN,TOTAL 0.5 mg/dL (0.2-1.0); CALCIUM 8.7 mg/dL (8.5-10.3); CREATININE 2.3 mg/dL (0.6-1.2); TOTAL PROTEIN 6.6 g/dL (6.7-8.2)
[2018-08-01] MEDS ORDERED: HEPARIN 25000UNITS/500ML (D5W) 25,000 UNIT/500 ML BAG IV STA (18:13)
[2018-08-01] MEDS ORDERED: LACTATED RINGERS 1,000 ML IV STA (18:13)
[2018-08-01] MEDS ORDERED: CEFEPIME 2 GM in SODIUM CHLORIDE 0.9% MINIBAG 100 ML IV STA (18:36)
[2018-08-01] MEDS ORDERED: ENOXAPARIN 80 MG/0.8 ML SYRINGE SUBQ STA (21:18)
[2018-08-01 21:36] VITALS: BP 117/54
== END 2018-08-01 21:33 | disposition short-term general hospital (02) ==
LOC: ED 17:33
DX: R09.02 Hypoxemia (principal); C25.9 Malignant neoplasm of pancreas, unspecified; N17.9 Acute kidney failure, unspecified; R00.0 Tachycardia, unspecified; I10 Essential (primary) hypertension; E11.9 Type 2 diabetes mellitus without complications; Z79.84 Long term (current) use of oral hypoglycemic drugs; Z79.82 Long term (current) use of aspirin
CPT/HCPCS: 36415; 71045; 80053; 83605; 83690; 83880; 84484; 85025; 87040; 93005; 96365; 96366; 96368; 96372; 96375; 99285; J1650; J3490; J7120

== ENCOUNTER 2019-07-28 13:04 | Outpatient (CLI) | payer MEDICARE, OTHER | END 2019-07-28 23:59 | disposition short-term general hospital (02) | LOC: EMS 13:04 | PROVIDERS: ATTEND Surgery | DX: R53.1 Weakness (principal); M54.9 Dorsalgia, unspecified | CPT/HCPCS: A0425; A0429; A0888 ==

== ENCOUNTER 2019-11-20 08:00 | Outpatient (CLI) | payer MEDICARE, OTHER | END 2019-11-20 23:59 | disposition home or self-care (01) | LOC: LAB.R 08:00 | PROVIDERS: ATTEND Family Medicine | DX: Z11.59 Encounter for screening for other viral diseases (principal) ==

== ENCOUNTER 2019-11-24 15:08 | Outpatient (CLI) | payer MEDICARE, OTHER | END 2019-11-24 15:09 | LOC: EMS 15:08 | PROVIDERS: ATTEND Surgery | DX: Z51.5 Encounter for palliative care (principal) | CPT/HCPCS: A0425; A0428 ==